=== PATIENT | female | born 1965 | race Hispanic/Latino ===

== ENCOUNTER 2016-10-12 08:38 | Outpatient (CLI) | payer BC ==
--- NOTE | 2016-10-12 11:37 | XRay Report ---
Right hand: Trauma, pain. There is a small avulsion fragment from the base of the middle phalanx in the third digit. There is mild swelling around the second and third digits. The findings otherwise appear generally unremarkable. Impression: Third digit fracture.
== END 2016-10-12 08:39 | disposition home or self-care (01) ==
LOC: SPVIMAG 08:38
PROVIDERS: ATTEND Specialist
DX: S62.602A Fracture of unspecified phalanx of right middle finger, initial encounter for closed fracture (principal); X58.XXXA Exposure to other specified factors, initial encounter; Y93.89 Activity, other specified; Y92.89 Other specified places as the place of occurrence of the external cause; Y99.8 Other external cause status

== ENCOUNTER 2016-11-25 16:58 | Emergency (ER) | payer BC ==
[2016-11-25 18:01] LABS: Basophils % (Auto) 0.8 % (0.0-1.8); Eosinophils % (Auto) 5.9 % (0.0-4.3); Hemoglobin 12.7 gm/dl (10.1-14.3); Mean Corpuscular HGB Conc 33 % (30-34); Mean Corpuscular Hemoglobin 30 pg (28-32); Mean Corpuscular Volume 89 fl (79-97); Platelet Count 239 K/mm3 (140-440); Red Blood Count 4.25 M/mm3 (3.65-5.03); Red Cell Distribution Width 13.5 % (13.2-15.2); White Blood Count 8.4 K/mm3 (4.5-11.0)
[2016-11-25 18:17] LABS: Alanine Aminotransferase 18 units/L (7-56); Albumin 4.2 g/dL (3.9-5); Albumin/Globulin Ratio 1.4 %; Alkaline Phosphatase 61 units/L (35-129); Anion Gap 19 mmol/L; BUN/Creatinine Ratio 22.85; Blood Urea Nitrogen 16 mg/dL (7-17); Calcium 9.2 mg/dL (8.4-10.2); Carbon Dioxide 22 mmol/L (22-30); Chloride 104.6 mmol/L (98-107); Glucose 115 mg/dL (65-100); Lipase 35 units/L (13-60); Potassium 3.9 mmol/L (3.6-5.0); Sodium 142 mmol/L (137-145); Total Protein 7.1 g/dL (6.3-8.2)
[2016-11-25 18:55] LABS: Bilirubin,Urine NEG (Negative); Blood,Urine NEG (Negative); Ketones,Urine NEG (Negative); Leukocyte Esterase,Urine NEG (Negative); Nitrite,Urine NEG (Negative); Protein,Urine <15 mg/dL mg/dL (Negative); RBC,Urine < 1.0 /HPF (0.0-6.0); Urobilinogen,Urine < 2.0 mg/dL (<2.0); WBC,Urine < 1.0 /HPF (0.0-6.0)
[2016-11-25] MEDS ORDERED: NACL 0.9% 1000 ML 1,000 ML IV ONE (19:37)
[2016-11-25] MEDS ORDERED: PEPCID IV ONE (19:37)
[2016-11-25] MEDS ORDERED: ZOFRAN IV ONE (19:37)
--- NOTE | 2016-11-25 20:41 | XRay Report ---
FINAL REPORT PROCEDURE: XR ABD SERIES W CXR 1V TECHNIQUE: Chest x-ray two views of the abdomen are obtained HISTORY: vomiting, epigastric pian COMPARISON: No prior studies are available for comparison. FINDINGS: The heart is normal in size. There is no focal infiltrate, pneumothorax or pleural effusion. Probable 6 millimeter calcified granuloma is present in the left upper lobe of the lungs but should be confirmed with CT exam. No free intraperitoneal air is seen. Mild retained fecal material in the colon is seen that may be mild constipation no small bowel dilation is seen no air-fluid levels are seen no suspicious calcifications are seen. IMPRESSION: 6 millimeter nodule in the left upper lobe of the lungs is probably a granuloma but confirmation with CT exam is recommended. There is likely mild diffuse constipation.
--- NOTE | 2016-11-25 21:36 | Emergency Department Report ---
ED N/V/D HPI - General Chief complaint: Abdominal Pain Stated complaint: VOMITING Time Seen by Provider: 11/25/16 19:26 Source: patient Mode of arrival: Ambulatory Limitations: No Limitations - History of Present Illness Initial comments: 50-year-old female with a past medical history of migraines and previous laprascopic lappendectomy presents to the hospital complaining of nausea vomiting all day. Mild epigastric discomfort secondary to vomiting. Described as a soreness that is mild, intermittent with vomiting, and worse with palpation. No reports or hematemesis, fever, melena, hematochezia, or diarrhea. Last bowel movement was this morning - Related Data Previous Rx's Medication Instructions Recorded Last Taken Type Famotidine [Pepcid] 20 mg PO BID #30 tablet 11/25/16 Unknown Rx Ondansetron [Zofran Odt] 4 mg PO Q8HR PRN #20 tab.rapdis 11/25/16 Unknown Rx Allergies Allergy/AdvReac Type Severity Reaction Status Date / Time bee venom (honey bee) AdvReac Anaphylaxis Verified 11/25/16 17:24 Penicillins AdvReac Anaphylaxis Verified 11/25/16 17:24 ED Review of Systems ROS: Stated complaint: VOMITING Other details as noted in HPI Comment: All other systems reviewed and negative Other: Constitutional: No fevers chills Eyes: No eye pain visual changes ENT: No ear pain or throat pain Neck: Denies pain Respiratory: Denies cough wheezing shortness of breath Cardiovascular: Denies chest pain, palpitations, syncope GI: As per HPI : Denies dysuria Musculoskeletal: Denies back pain Skin: Denies rash, lesions, erythema Neurologic: Denies headache, numbness, weakness Psychiatric: Denies suicidal ideation, hallucinations ED Past Medical Hx - Past Medical History Previous Medical History?: Yes Hx Headaches / Migraines: Yes - Social History Smoking Status: Never Smoker Substance Use Type: None - Medications Home Medications: Home Medications Medication Instructions Recorded Confirmed Last Taken Type Famotidine [Pepcid] 20 mg PO BID #30 tablet 11/25/16 Unknown Rx Ondansetron [Zofran Odt] 4 mg PO Q8HR PRN #20 tab.rapdis 11/25/16 Unknown Rx ED Physical Exam - General Limitations: No Limitations - Other Other exam information: General: No limitations, patient is alert in no acute distress Head exam: Atraumatic, normocephalic Eyes exam: Normal appearance, pupils equal reactive to light, extraocular movements intact ENT: Moist mucous membrane, normal oropharynx Neck exam: Normal inspection, full range of motion, no meningismus nontender Respiratory exam: Clear to auscultation bilateral, no wheezes, rales, crackles Cardiovascular: Normal rate and rhythm, normal heart sounds Abdomen: Soft, nondistended, mild epigastric tenderness, with normal bowel sounds, no rebound, or guarding Extremity: Full range of motion normal inspection no deformity Back: Normal Inspection, full range of motion, no tenderness Neurologic: Alert, oriented x3, cranial nerves intact, no motor or sensory deficit Psychiatric: normal affect, normal mood Skin: Warm, dry, intact ED Course Vital Signs 11/25/16 11/25/16 17:24 18:01 Temperature 97.7 F 98.1 F Pulse Rate 81 70 Respiratory 16 16 Rate Blood Pressure 116/87 Blood Pressure 111/68 [Left] O2 Sat by Pulse 99 100 Oximetry - Reevaluation(s) Reevaluation #1: 11/25/16 21:34 Zofran provided with improvement in symptoms. Patient able to tolerate by mouth and reports feeling better. 1 L normal saline still in progress ED Medical Decision Making - Lab Data Result diagrams: 11/25/16 17:47 11/25/16 17:47 Lab Results 11/25/16 11/25/16 11/25/16 Range/Units 17:47 17:47 18:29 WBC 8.4 (4.5-11.0) K/mm3 RBC 4.25 (3.65-5.03) M/mm3 Hgb 12.7 (10.1-14.3) gm/dl Hct 38.0 (30.3-42.9) % MCV 89 (79-97) fl MCH 30 (28-32) pg MCHC 33 (30-34) % RDW 13.5 (13.2-15.2) % Plt Count 239 (140-440) K/mm3 Lymph % (Auto) 29.7 (13.4-35.0) % [place] % (Auto) 7.6 H (0.0-7.3) % Eos % (Auto) 5.9 H (0.0-4.3) % Baso % (Auto) 0.8 (0.0-1.8) % Lymph # 2.5 (1.2-5.4) K/mm3 [place] # 0.6 (0.0-0.8) K/mm3 Eos # 0.5 H (0.0-0.4) K/mm3 Baso # 0.1 (0.0-0.1) K/mm3 Seg Neutrophils % 56.0 (40.0-70.0) % Seg Neutrophils # 4.7 (1.8-7.7) K/mm3 Sodium 142 (137-145) mmol/L Potassium 3.9 (3.6-5.0) mmol/L Chloride 104.6 (98-107) mmol/L Carbon Dioxide 22 (22-30) mmol/L Anion Gap 19 mmol/L BUN 16 (7-17) mg/dL Creatinine 0.7 (0.7-1.2) mg/dL Estimated GFR > 60 ml/min BUN/Creatinine Ratio 22.85 % Glucose 115 H (65-100) mg/dL Calcium 9.2 (8.4-10.2) mg/dL Total Bilirubin 0.20 (0.1-1.2) mg/dL AST 17 (5-40) units/L ALT 18 (7-56) units/L Alkaline Phosphatase 61 (35-129) units/L Total Protein 7.1 (6.3-8.2) g/dL Albumin 4.2 (3.9-5) g/dL Albumin/Globulin Ratio 1.4 % Lipase 35 (13-60) units/L Urine Color Yellow (Yellow) Urine Turbidity Clear (Clear) Urine pH 6.0 (5.0-7.0) Ur Specific Effort 1.015 (1.003-1.030) Urine Protein <15 mg/dl (Negative) mg/dL Urine Glucose (UA) Neg (Negative) mg/dL Urine Ketones Neg (Negative) mg/dL Urine Blood Neg (Negative) Urine Nitrite Neg (Negative) Urine Bilirubin Neg (Negative) Urine Urobilinogen < 2.0 (<2.0) mg/dL Ur Leukocyte Esterase Neg (Negative) Urine WBC (Auto) < 1.0 (0.0-6.0) /HPF Urine RBC (Auto) < 1.0 (0.0-6.0) /HPF U Epithel Cells (Auto) < 1.0 (0-13.0) /HPF - Radiology Data Radiology results: report reviewed (abdominal series x-ray which has: 6 mm nodule left upper lobe probable granuloma follow-up recommended. Mild diffuse constipation) - Medical Decision Making Patient tolerating by mouth after treatment in ED. We'll discharge home with follow-up. Provide a copy of x-ray results for follow-up regarding incidental right lung granuloma. - Differential Diagnosis gastritis, pancreatitis, PUD, obstruction, viral syndrome Critical Care Time: No Critical care attestation.: If time is entered above; I have spent that time in minutes in the direct care of this critically ill patient, excluding procedure time. ED Disposition Clinical Impression: Vomiting, Pulmonary nodule, right Disposition: DC- TO HOME OR SELFCARE Is pt being admited?: No Does the pt Need Aspirin: No Condition: Stable Instructions: Acute Nausea and Vomiting (ED) Additional Instructions: Follow-up with your doctor for reevaluation. Take a copy of the x-rays provided to your doctor for further outpatient evaluation regarding incidental finding of right lung nodule. Prescriptions: Famotidine [Pepcid] 20 mg PO BID #30 tablet Ondansetron [Zofran Odt] 4 mg PO Q8HR PRN #20 tab.rapdis PRN Reason: Nausea And Vomiting Referrals: PRIMARY CARE, [Primary Care Provider] - 2-3 Days Time of Disposition: 21:47
[2016-11-25 22:01] VITALS: BP 120/81
== END 2016-11-25 22:01 | disposition home or self-care (01) ==
LOC: ED 16:58
DX: R91.1 Solitary pulmonary nodule (principal); G43.909 Migraine, unspecified, not intractable, without status migrainosus; Z88.0 Allergy status to penicillin; Z91.030 Bee allergy status
CPT/HCPCS: 36415; 74022; 80053; 81001; 83690; 85025; 96361; 96374; 96375; 99284; J2405; J7030

== ENCOUNTER 2017-05-03 15:05 | Outpatient (CLI) | payer BC ==
--- NOTE | 2017-05-04 08:43 | Mammography Report ---
BILATERAL DIGITAL SCREENING MAMMOGRAM with CAD : 05/03/17 15:05:00 CLINICAL: Routine screening. COMPARISON:03/25/16 FINDINGS: The breasts are heterogeneously dense, which may obscure small masses.Right inner biopsy clip. No mass, architectural distortion or suspicious calcifications. IMPRESSION: No mammographic evidence of malignancy. BI-RADS CATEGORY: 2 -- Benign RECOMMENDATION: Routine mammographic screening in one year. COMMENT: Patient follow-up letters are generated by our [employer] application.
== END 2017-05-03 15:06 | disposition home or self-care (01) ==
LOC: SPVWC 15:05
PROVIDERS: ATTEND Obstetrics & Gynecology
DX: Z12.31 Encounter for screening mammogram for malignant neoplasm of breast (principal)
CPT/HCPCS: 77067; G0202

== ENCOUNTER 2018-03-26 13:21 | Outpatient (CLI) | payer BC ==
--- NOTE | 2018-03-27 07:12 | XRay Report ---
FINAL REPORT EXAM: XR CHEST ROUTINE 2V HISTORY: PERSISTENT COUGH TECHNIQUE: PA and lateral views of the chest were obtained and compared to the study of 11/25/2016. FINDINGS: The heart size and vascularity appear normal. The lungs are clear. Pleural fluid is not seen. The skeletal structures do not show any acute changes. IMPRESSION: No acute cardiopulmonary process.
== END 2018-03-26 13:22 | disposition home or self-care (01) ==
LOC: SPVWC 13:21
PROVIDERS: ATTEND Specialist
DX: R05 Cough (principal)
CPT/HCPCS: 71046

== ENCOUNTER 2019-04-03 12:33 | Day surgery (SDC) | payer BC ==
[2019-04-03] MEDS ORDERED: LIDOCAINE MPF (2%) 20 MG/1 ML VIAL 5 ML ONE (13:00)
[2019-04-03] MEDS ORDERED: SODIUM CHLORIDE 0.9% 1000 ML 1,000 ML ONE (13:01)
[2019-04-03] MEDS ORDERED: SODIUM CHLORIDE 0.9% 1000 ML 1,000 ML IV SCH (14:00)
[2019-04-03] MEDS ORDERED: PROPOFOL 200 MG/20 ML VIAL IV ONE ×2 (14:23)
--- NOTE | 2019-04-03 14:47 | Short Stay Summary ---
Short Stay Documentation Date of service: 04/03/19 Narrative H&P: 53 yo WF with 6 month hx of intermittent BRBPR. BMs 2x/d, no change. GI bleed with dark red blood streaking stool. No abd pain, N/V, weight loss. - History Past Medical History: anemia, hyperlipidemia, other (Migraines, Anxiety) Past Surgical History: appendectomy, tonsillectomy Social history: no smoking, no alcohol abuse - Allergies and Medications Current Medications: Allergies Penicillins Adverse Reaction (Verified 04/03/19 13:24) Anaphylaxis venom-honey bee [bee venom (honey bee)] Adverse Reaction (Verified 04/03/19 13:24) Anaphylaxis Home Medications Medication Instructions Recorded Confirmed Last Taken Type SUMAtriptan SUCCINATE [Imitrex] 100 mg PO DAILY 04/03/19 04/03/19 2 Months Ago History ~02/01/19 Active Medications Sodium Chloride (Nacl 0.9% 1000 Ml) 1,000 mls @ 50 mls/hr IV DIRECT CONNIE - Physical exam General appearance: no acute distress HEENT: PERRLA, EOMI Lungs: Clear to auscultation Heart: Regular rate, Normal S1, Normal S2 Gastrointestinal: normal, normoactive bowel sounds Extremities: No edema - Brief post op/procedure progress note Date of procedure: 04/03/19 Pre-op diagnosis: Rectal bleed Post-op diagnosis: other (External hemorrhoids) Procedure: Colonoscopy Anesthesia: MAC Findings: 1. Normal colon 2. Moderate external hemorrhoids Surgeon: MARIA DUCKWORTH Estimated blood loss: none Pathology: none Condition: stable - Disposition Condition at discharge: Good Disposition: DC-01 TO HOME OR SELFCARE Short Stay Discharge Plan Follow up with: SELVIN PALMER MD [Primary Care Provider] - 7 Days
--- NOTE | 2019-04-03 14:58 | Anesthesia Consultation ---
Anesthesia Consult and Med Hx Date of service: 04/03/19 - Airway Anesthetic Teeth Evaluation: Good ROM Head & Neck: Adequate Mental/Hyoid Distance: Adequate Mallampati Class: Class II Intubation Access Assessment: Good - Pulmonary Exam CTA: Yes - Cardiac Exam Cardiac Exam: RRR - Pre-Operative Health Status ASA Pre-Surgery Classification: ASA2 Proposed Anesthetic Plan: MAC - Central Nervous System Hx Psychiatric Problems: No - Hematic Hx Anemia: Yes - Other Systems Hx Alcohol Use: No Hx Substance Use: No
--- NOTE | 2019-04-03 14:58 | Anesthesia Day of Surgery ---
Anesthesia Day of Surgery - Day of Surgery Patient Examined: Yes Patient H&P Reviewed: Yes Patient is NPO: Yes
--- NOTE | 2019-04-03 14:58 | Post Anesthesia Evaluation ---
- Post Anesthesia Evaluation Patient Participated: Yes Airway Patent: Yes Stable Respiratory Function: Yes Nausea/Vomiting: No Temp > 96.8F: Yes Pain Manageable: Yes Adequeate Hydration: Yes Anesthesia Complications: No Block Receding Appropriately: Not Applicable Patient on Ventilator: No
--- NOTE | 2019-04-03 14:58 | Operative Report ---
PROCEDURE: Colonoscopy. PREOPERATIVE DIAGNOSIS: Rectal bleeding. POSTOPERATIVE DIAGNOSIS: External hemorrhoids. SEDATION: MAC by Anesthesia. HISTORY: The patient is a 53-year-old woman who presents with intermittent rectal bleeding x 6 months. DESCRIPTION OF PROCEDURE: Indications, risks, and benefits were explained and consent was obtained. The patient was placed in left lateral decubitus position and sedated. Video colonoscope was passed through the rectum after digital examination and passed with minimal difficulty to the cecum. Prep was fair to good with some areas of thick liquid stool coating the wall, making visualization suboptimal at times. FINDINGS: 1. Visualized colonic mucosa is normal appearing with no evidence of mass lesions, vascular lesions or inflammation. 2. Retroflex examination revealed moderate external hemorrhoids. 3. The patient tolerated the procedure well without immediate complications. IMPRESSION: 1. External hemorrhoids -- possible source of bleeding. 2. Otherwise, normal colonoscopy. PLAN: 1. High fiber diet. 2. Monitor. JOB# [id number] HRC/NTS
[2019-04-03 15:13] VITALS: BP 111/67
== END 2019-04-03 12:34 | disposition home or self-care (01) ==
LOC: GIO 12:33
PROVIDERS: ATTEND Internal Medicine Gastroenterology
DX: K92.2 Gastrointestinal hemorrhage, unspecified (principal); K64.8 Other hemorrhoids; G43.909 Migraine, unspecified, not intractable, without status migrainosus; E78.00 Pure hypercholesterolemia, unspecified; Z90.49 Acquired absence of other specified parts of digestive tract; Z98.890 Other specified postprocedural states; Z88.0 Allergy status to penicillin; Z79.899 Other long term (current) drug therapy; Z86.2 Personal history of diseases of the blood and blood-forming organs and certain disorders involving the immune mechanism
CPT/HCPCS: 45378; J2704; J7030

== ENCOUNTER 2019-05-28 10:17 | Outpatient (CLI) | payer BC ==
--- NOTE | 2019-05-28 13:12 | Mammography Report ---
DIGITAL SCREENING MAMMOGRAM WITH CAD, 05/28/2019 INDICATION: Routine screening mammography. TECHNIQUE: Digital bilateral 2D mammography was obtained in the craniocaudal and mediolateral obliq ue projections. This examination was interpreted with the benefit of Computer-Aided Detection analysi s. COMPARISON: 05/17/2018 FINDINGS: Breast Density: The breasts are heterogeneously dense, which may obscure small masses. There is no evidence of dominant mass, suspicious calcifications or architectural distortion in eithe r breast. A right inner biopsy clip. IMPRESSION: No mammographic evidence of malignancy. Follow up recommendation: Routine yearly BI-RADS Category 2: Benign. A "normal" or negative report should not discourage follow up or biopsy of a clinically significant f inding. A written summary of these findings will be mailed to the patient. The patient will be entered into a mammography reporting system which will generate a reminder letter for the patient's next appointmen t at the appropriate interval. The [employer] recommends yearly mammograms starting at age 40 and continuing as l rigo as a woman is in good health. Breast MRI is recommended for women with an approximate 20-25% or greater lifetime risk of breast cancer, including women with a strong family history of breast or ova stanton cancer or who have been treated for Hodgkin's disease. Signer Name: Boo Koch MD Signed: 05/28/2019 1:08 PM Workstation Name: [id number]
== END 2019-05-28 10:18 | disposition home or self-care (01) ==
LOC: SPVWC 10:17
PROVIDERS: ATTEND Obstetrics & Gynecology
DX: Z12.31 Encounter for screening mammogram for malignant neoplasm of breast (principal)
CPT/HCPCS: 77067

== ENCOUNTER 2020-06-02 14:57 | Outpatient (CLI) | payer BC ==
--- NOTE | 2020-06-03 08:30 | Mammography Report ---
DIGITAL SCREENING MAMMOGRAM WITH TOMOSYNTHESIS WITH CAD, 06/02/2020 CLINICAL INFORMATION / INDICATION: Routine Screening Mammography. TECHNIQUE: Digital bilateral 2D and 3D mammography with tomosynthesis was obtained in the craniocaud al and mediolateral oblique projections. Computer-Aided Detection (CAD) analysis was used for interp retation of this study. COMPARISON: 05/28/2019, 05/17/2018 FINDINGS: Breast Density: The breasts are heterogeneously dense, which may obscure small masses. No dominant mass, suspicious calcifications, or architectural distortion in either breast. Right breast biopsy clip is noted. Overall, no significant interval change. IMPRESSION: No mammographic evidence of malignancy. Follow up recommendation: Routine yearly BI-RADS Category 2: Benign. A "normal" or negative report should not discourage follow up or biopsy of a clinically significant f inding. A written summary of these findings will be mailed to the patient. The patient will be entered into a mammography reporting system which will generate a reminder letter for the patient's next appointmen t at the appropriate interval. The [employer] recommends yearly mammograms starting at age 40 and continuing as l rigo as a woman is in good health. Breast MRI is recommended for women with an approximate 20-25% or greater lifetime risk of breast cancer, including women with a strong family history of breast or ova stanton cancer or who have been treated for Hodgkin's disease. Signer Name: Milady Hackett MD Signed: 06/03/2020 8:25 AM Workstation Name: [id number]
== END 2020-06-02 14:58 | disposition home or self-care (01) ==
LOC: SPVWC 14:57
PROVIDERS: ATTEND Obstetrics & Gynecology
DX: Z12.31 Encounter for screening mammogram for malignant neoplasm of breast (principal)
CPT/HCPCS: 77063; 77067

== ENCOUNTER 2020-08-06 09:12 | Observation (INO) | payer BC ==
[2020-08-06] MEDS ORDERED: ASPIRIN 325 MG TAB PO ONE ×2 (09:25→09:57)
--- NOTE | 2020-08-06 09:27 | Event Note ---
ED Screening Note Date of service: 08/06/20 Time: 09:26 ED Screening Note: 54-year-old female with a past medical history of migraine headaches presents to the ER today complaint of substernal chest pain which she describes as a squeezing pain. Onset about a week ago. Intermittent in nature. She states that it got worse today. She reports associated shortness of breath. She is unable to describe any modifying factors. She states that she gets hot when the pain flares up but denies any diaphoresis. She denies any nausea, vomiting, abdominal pain or cough. States that she had a stress test several years ago and that was normal. She states that she is concerned because her mom had history of severe coronary artery disease. This initial assessment/diagnostic orders/clinical plan/treatment(s) is/are subject to change based on patients health status, clinical progression and re- assessment by fellow clinical providers in the ED. Further treatment and workup at subsequent clinical providers discretion. Patient/guardian urged not to elope from the ED as their condition may be serious if not clinically assessed and managed. Initial orders include: Chest pain order set.
--- NOTE | 2020-08-06 09:49 | Emergency Department Report ---
ED Chest Pain HPI - General Chief Complaint: Chest Pain Stated Complaint: CHEST PAIN PUI?: No Time Seen by Provider: 08/06/20 09:47 Source: patient, RN notes reviewed Mode of arrival: Ambulatory Limitations: No Limitations - History of Present Illness Initial Comments: The patient was evaluated in the emergency department for symptoms described in the history of present illness. He/she was evaluated in the context of the [facility] COVID-19 pandemic, which necessitated consideration that the patient might be at risk for infection with the virus that causes COVID-19. Institutional protocols and algorithms that pertain to the evaluation of patients at risk for COVID-19 are in a state of rapid change based on information released by regulatory bodies including the CDC and federal and state organizations. These policies and algorithms were followed during the patient's care in the emergency department. Please note that these policies, procedures and recommendations changed on a rapid basis. Primary CARE doctor: Puneet Olivares The patient is a 54-year-old female. She is a past medical history of headaches and migraines. She has a strong family history of heart disease/myocardial infarction, and reports that her mother had a "massive" myocardial infarction, and her young 60s. During the history and physical examination, I am chaperoned by nurse Karen Macedo Patient presents to the ER today with a complaint of central and left-sided chest pain. It is intermittent and squeezing. It been present since last nigh t. It worsens with deep inspiration. No fever. No vomiting. Positive diaphoresis. Positive nausea. The pain does not radiate to the back, arms or neck. Patient endorses intermittent right posterior knee/lower extremity pain and discomfort. No recent aspirin consumption. No recent cardiac risk ratification. Patient is pain-free at this time. MD Complaint: chest pain -: Gradual, hour(s) Pain Location: substernal, left chest Pain Radiation: none Severity scale (0 -10): 0 Quality: aching, heaviness, sharp Consistency: intermittent Improves With: rest Worsens With: inspiration Aspirin use within the Past 7 Days: (0) No - Related Data Home Medications Medication Instructions Recorded Confirmed Last Taken Ubrogepant [Ubrelvy] 50 mg PO PRN PRN 08/06/20 08/06/20 Unknown Previous Rx's Medication Instructions Recorded Last Taken Type Aspirin [Aspirin BABY CHEW TAB] 81 mg PO QDAY #30 tab.chew 03/04/21 Unknown Rx Allergies Allergy/AdvReac Type Severity Reaction Status Date / Time Penicillins AdvReac Anaphylaxis Verified 08/06/20 09:35 venom-honey bee AdvReac Anaphylaxis Verified 08/06/20 09:35 [bee venom (honey bee)] Heart Score - HEART Score History: Moderately suspicious EKG: Non-specific Age: 45-65 Risk factors: 1-2 risk factors Troponin: < normal limit HEART Score: 4 - Critical Actions Critical Actions: 4-6 pts:12-16.6% risk of adverse cardiac event. Should be admitted ED Review of Systems ROS: Stated complaint: CHEST PAIN Other details as noted in HPI Constitutional: other (Denies loss of taste and smell). denies: fever, weakness Eyes: denies: eye discharge ENT: denies: epistaxis Respiratory: other (Pain with deep inspiration) Cardiovascular: chest pain Gastrointestinal: nausea. denies: hematemesis, melena, hematochezia Genitourinary: denies: dysuria Musculoskeletal: denies: back pain Neurological: denies: headache Hematological/Lymphatic: denies: easy bleeding ED Past Medical Hx - Past Medical History Hx Headaches / Migraines: Yes (MIGRAINES-PRN MED) Hx HIV: No - Surgical History Hx Appendectomy: Yes Hx Breast Surgery: Yes (R BREAST BX) Additional Surgical History: TONSILS - Social History Smoking Status: Never Smoker Substance Use Type: Alcohol - Medications Home Medications: Home Medications Medication Instructions Recorded Confirmed Last Taken Type Aspirin [Aspirin BABY CHEW TAB] 81 mg PO QDAY #30 tab.chew 08/06/20 Unknown Rx Ubrogepant [Ubrelvy] 50 mg PO PRN PRN 08/06/20 08/06/20 Unknown History ED Physical Exam - General Limitations: No Limitations General appearance: alert, in no apparent distress - Head Head exam: Present: atraumatic, normocephalic - Eye Eye exam: Present: normal appearance, EOMI. Absent: nystagmus - ENT ENT exam: Present: normal exam, normal orophraynx, mucous membranes moist, normal external ear exam - Neck Neck exam: Present: normal inspection, full ROM. Absent: tenderness, meningismus - Respiratory Respiratory exam: Present: normal lung sounds bilaterally. Absent: respiratory distress, wheezes, rales, rhonchi, stridor, chest wall tenderness - Cardiovascular Cardiovascular Exam: Present: regular rate, normal rhythm, normal heart sounds. Absent: bradycardia, tachycardia, irregular rhythm, systolic murmur, diastolic murmur, rubs, gallop - GI/Abdominal GI/Abdominal exam: Present: soft, normal bowel sounds. Absent: distended, tenderness, guarding, rebound, rigid, pulsatile mass - Extremities Exam Extremities exam: Present: normal inspection, full ROM, other (2+ pulses noted in the bilateral upper and lower extremities. There is no palpable cord. negative Homans sign. Muscular compartments are soft. The pelvis is stable.). Absent: pedal edema, calf tenderness - Back Exam Back exam: Present: normal inspection, full ROM. Absent: tenderness, CVA tenderness (R), CVA tenderness (L), paraspinal tenderness, vertebral tenderness - Neurological Exam Neurological exam: Present: alert, oriented X3, normal gait, other (No facial droop. Tongue midline. Extraocular movements intact bilaterally. Facial sensation intact to light touch in V1, V2, V3 distribution bilaterally. 5 and a 5 strength in 4 extremities. Sensation intact to light touch in 4 extremities.). Absent: motor sensory deficit - Psychiatric Psychiatric exam: Present: anxious - Skin Skin exam: Present: warm, dry, intact, normal color. Absent: rash ED Course Vital Signs 08/06/20 08/06/20 08/06/20 09:24 09:34 09:58 Temperature 97.2 F L Pulse Rate 82 72 Respiratory 22 18 18 Rate Blood Pressure 135/77 Blood Pressure 130/69 [Right] O2 Sat by Pulse 98 99 98 Oximetry 08/06/20 08/06/20 08/06/20 10:04 10:49 11:37 Temperature Pulse Rate 70 64 62 Respiratory 18 18 18 Rate Blood Pressure Blood Pressure 103/69 101/67 107/57 [Right] O2 Sat by Pulse 99 100 98 Oximetry - Reevaluation(s) Reevaluation #1: 08/06/20 11:22 Differential diagnosis, including but not limited to: Unstable angina, acute coronary syndrome, pulmonary embolism, DVT, GERD, gastritis, hiatal hernia, pneumonia Assessment and plan: 54-year-old female, who is not currently tachycardic, tachypneic or hypoxic, who denies DVT and pulmonary embolism risk factors, low risk by Wells criteria, negative D-dimer, negative bilateral lower extremity ultrasound for DVT, with concerning chest pain. She is chest pain-free at this time. X-ray of the chest is unremarkable. EKG abnormal without prior for comparison. Patient at moderate risk for major ad verse cardiac event as per heart score, admission to the hospital is recommended for accelerated cardiac risk stratification. Discussed this plan of care with the patient, who verbalized understanding. We are awaiting remainder of laboratory studies so we may admit this patient for accelerated cardiac risk ratification. Urinalysis reviewed and appreciated. The patient is asymptomatic at this time. Reevaluation #2: 08/06/20 12:23 Troponin negative. Remainder of laboratory studies unremarkable. Reassessed patient. Have reiterated recommendation for admission for cardiac risk stratification. Patient declines admission at this time. The patient is currently alert and oriented x3, clinically sober, free from distracting injury, and exhibits decision-making capacity. Risks of leaving, including , disability, paralysis, permanent loss of quality of life are discussed with the patient. She is able to articulate these risks in her own words. Conversation witnessed by nurse Sania Macedo Patient understands that she may return to the emergency room right away if and when she changes her mind. Reevaluation #3: 08/06/20 12:30 Change in plans. Patient now amenable to admission/hospitalization. She was going to sign out AGAINST MEDICAL ADVICE because she has 6 dogs at home and she did not have anyone who could care for these animals. However, she got in touch with her neighbor, who was able to take care of the animals, and she is now amenable to admission/hospitalization. Hospital physician, Dr. Sheikh, to assume care for this patient. JOSE ANGEL score - Jose Angel Score Age > 65: (0) No Aspirin use within the Past 7 Days: (0) No 3 or more CAD Risk Factors: (0) No 2 or more Angina events in past 24 hrs: (0) No Known CAD with more than 50% Stenosis: (0) No Elevated Cardiac Markers: (0) No ST Deviation Greater than 0.5mm: (0) No JOSE ANGEL Score: 0 ED Medical Decision Making - Lab Data Result diagrams: 08/06/20 09:39 08/06/20 09:39 Vital Signs 08/06/20 08/06/20 08/06/20 09:24 09:34 09:58 Temperature 97.2 F L Pulse Rate 82 72 Respiratory 22 18 18 Rate Blood Pressure 135/77 Blood Pressure 130/69 [Right] O2 Sat by Pulse 98 99 98 Oximetry 08/06/20 08/06/20 10:04 10:49 Temperature Pulse Rate 70 64 Respiratory 18 18 Rate Blood Pressure Blood Pressure 103/69 101/67 [Right] O2 Sat by Pulse 99 100 Oximetry Lab Results 08/06/20 08/06/20 08/06/20 Range/Units 09:39 09:39 09:49 WBC 6.7 (4.5-11.0) K/mm3 RBC 4.28 (3.65-5.03) M/mm3 Hgb 13.1 (10.1-14.3) gm/dl Hct 38.6 (30.3-42.9) % MCV 90 (79-97) fl MCH 31 (28-32) pg MCHC 34 (30-34) % RDW 13.6 (13.2-15.2) % Plt Count 227 (140-440) K/mm3 Lymph % (Auto) 27.2 (13.4-35.0) % [place] % (Auto) 8.2 H (0.0-7.3) % Eos % (Auto) 3.9 (0.0-4.3) % Baso % (Auto) 1.1 (0.0-1.8) % Lymph # (Auto) 1.8 (1.2-5.4) K/mm3 [place] # (Auto) 0.6 (0.0-0.8) K/mm3 Eos # (Auto) 0.3 (0.0-0.4) K/mm3 Baso # (Auto) 0.1 (0.0-0.1) K/mm3 Seg Neutrophils % 59.6 (40.0-70.0) % Seg Neutrophils # 4.0 (1.8-7.7) K/mm3 PT 11.7 L (12.2-14.9) Sec. INR 0.88 (0.87-1.13) D-Dimer 142.30 (0-234) ng/mlDDU HCG, Qual TNR Urine Color (Yellow) Urine Turbidity (Clear) Urine pH (5.0-7.0) Ur Specific [place] (1.003-1.030) Urine Protein (Negative) mg/dL Urine Glucose (UA) (Negative) mg/dL Urine Ketones (Negative) mg/dL Urine Blood (Negative) Urine Nitrite (Negative) Urine Bilirubin (Negative) Urine Urobilinogen (<2.0) mg/dL Ur Leukocyte Esterase (Negative) Urine WBC (Auto) (0.0-6.0) /HPF Urine RBC (Auto) (0.0-6.0) /HPF U Epithel Cells (Auto) (0-13.0) /HPF Urine Bacteria (Auto) (Negative) /HPF Urine Mucus /HPF Urine Yeast (Budding) /HPF 08/06/20 Range/Units 09:51 WBC (4.5-11.0) K/mm3 RBC (3.65-5.03) M/mm3 Hgb (10.1-14.3) gm/dl Hct (30.3-42.9) % MCV (79-97) fl MCH (28-32) pg MCHC (30-34) % RDW (13.2-15.2) % Plt Count (140-440) K/mm3 Lymph % (Auto) (13.4-35.0) % [place] % (Auto) (0.0-7.3) % Eos % (Auto) (0.0-4.3) % Baso % (Auto) (0.0-1.8) % Lymph # (Auto) (1.2-5.4) K/mm3 [place] # (Auto) (0.0-0.8) K/mm3 Eos # (Auto) (0.0-0.4) K/mm3 Baso # (Auto) (0.0-0.1) K/mm3 Seg Neutrophils % (40.0-70.0) % Seg Neutrophils # (1.8-7.7) K/mm3 PT (12.2-14.9) Sec. INR (0.87-1.13) D-Dimer (0-234) ng/mlDDU HCG, Qual Urine Color Yellow (Yellow) Urine Turbidity Clear (Clear) Urine pH 6.0 (5.0-7.0) Ur Specific [place] 1.011 (1.003-1.030) Urine Protein <15 mg/dl (Negative) mg/dL Urine Glucose (UA) Neg (Negative) mg/dL Urine Ketones Tr (Negative) mg/dL Urine Blood Sm (Negative) Urine Nitrite Neg (Negative) Urine Bilirubin Neg (Negative) Urine Urobilinogen 2.0 (<2.0) mg/dL Ur Leukocyte Esterase Mod (Negative) Urine WBC (Auto) 8.0 H (0.0-6.0) /HPF Urine RBC (Auto) 5.0 (0.0-6.0) /HPF U Epithel Cells (Auto) 3.0 (0-13.0) /HPF Urine Bacteria (Auto) 1+ (Negative) /HPF Urine Mucus Few /HPF Urine Yeast (Budding) Few /HPF Vital Signs 08/06/20 08/06/20 08/06/20 09:24 09:34 09:58 Temperature 97.2 F L Pulse Rate 82 72 Respiratory 22 18 18 Rate Blood Pressure 135/77 Blood Pressure 130/69 [Right] O2 Sat by Pulse 98 99 98 Oximetry 08/06/20 08/06/20 08/06/20 10:04 10:49 11:37 Temperature Pulse Rate 70 64 62 Respiratory 18 18 18 Rate Blood Pressure Blood Pressure 103/69 101/67 107/57 [Right] O2 Sat by Pulse 99 100 98 Oximetry - EKG Data -: EKG Interpreted by Ct EKG shows normal: sinus rhythm Rate: normal - EKG Data When compared to previous EKG there are: previous EKG unavailable 08/06/20 11:21 Time of EKG interpretation: 9: 28: A.m. No prior available for comparison. Sinus rhythm, 72 bpm. Normal axis, QTC within normal limits. Poor R wave progression. T wave inversion in aVL. Minimal motion artifact. Abnormal EKG. Not a STEMI. - Radiology Data Radiology results: pending, report reviewed, image reviewed DUPLEX DOPPLER LOWER EXTREMITY VEINS, BILATERAL INDICATION / CLINICAL INFORMATION: rle pain cramping, dyspnea. TECHNIQUE: Duplex doppler imaging was performed through the veins of both lower extremities using venous compression and other maneuvers. COMPARISON: None available. FINDINGS: RIGHT COMMON FEMORAL VEIN: Negative. RIGHT FEMORAL VEIN: Negative. RIGHT POPLITEAL VEIN: Negative. RIGHT CALF VEINS: Negative. LEFT COMMON FEMORAL VEIN: Negative. LEFT FEMORAL VEIN: Negative. LEFT POPLITEAL VEIN: Negative. LEFT CALF VEINS: Negative. ADDITIONAL FINDINGS: None. IMPRESSION: 1. No sonographic evidence for DVT in either lower extremity. Signer Name: Jayesh Chávez MD Signed: 08/06/2020 9:48 AM Workstation Name: [id number] CHEST 1 VIEW 08/06/2020 9:11 AM INDICATION / CLINICAL INFORMATION: Chest Pain. COMPARISON: None available. FINDINGS: SUPPORT DEVICES: None. HEART / MED IASTINUM: No significant abnormality. LUNGS / PLEURA: No significant pulmonary or pleural abnormality. No pneumothorax. ADDITIONAL FINDINGS: No significant additional findings. IMPRESSION: 1. No acute findings. Signer Name: Jayesh Chávez MD Signed: 08/06/2020 9:13 AM Workstation Name: [id number] Critical care attestation.: If time is entered above; I have spent that time in minutes in the direct care of this critically ill patient, excluding procedure time. ED Disposition Clinical Impression: Acute chest pain, Right leg pain, Abnormal EKG Disposition: OP ADMIT IP TO THIS HOSP Is pt being admited?: Yes Does the pt Need Aspirin: No Condition: Good Instructions: Angina, [id number], Chest Pain (ED) Additional Instructions: As we discussed, you have left the hospital/emergency room AGAINST MEDICAL ADVICE. By leaving, you risked , disability, paralysis, permanent loss of quality of life. The ER is open 24 hours a day, 7 days a week. It never clos es. Please return to the emergency room right away if and when you change your mind. If you decide not to return to the emergency room, please follow-up with the listed physician referrals as soon as possible. Prescriptions: Aspirin [Aspirin BABY CHEW TAB] 81 mg PO QDAY #30 tab.chew Referrals: JANAK ASENCIO MD [Staff Physician] - 3-5 Days ZURI DAVIS MD [Staff Physician] - 3-5 Days [facility] [Provider Group] - 3-5 Days [facility] [Provider Group] - 3-5 Days
[2020-08-06] MEDS ORDERED: FAMOTIDINE 20 MG TAB PO ONE (09:57)
[2020-08-06] MEDS ORDERED: NITROGLYCERIN 0.4 MG TAB SUBL SL PRN (09:57)
[2020-08-06] MEDS ORDERED: ASPIRIN 325 MG TAB PO SCH (10:00)
[2020-08-06 10:13] LABS: Basophils # (Auto) 0.1 K/mm3 (0.0-0.1); Basophils % (Auto) 1.1 % (0.0-1.8); Eosinophils # (Auto) 0.3 K/mm3 (0.0-0.4); Eosinophils % (Auto) 3.9 % (0.0-4.3); Hematocrit 38.6 % (30.3-42.9); Hemoglobin 13.1 gm/dl (10.1-14.3); Lymphocytes # (Auto) 1.8 K/mm3 (1.2-5.4); Lymphocytes % (Auto) 27.2 % (13.4-35.0); Mean Corpuscular HGB Conc 34 % (30-34); Mean Corpuscular Volume 90 fl (79-97); Monocytes # (Auto) 0.6 K/mm3 (0.0-0.8); Monocytes % (Auto) 8.2 % (0.0-7.3); Platelet Count 227 K/mm3 (140-440); Red Blood Count 4.28 M/mm3 (3.65-5.03); Red Cell Distribution Width 13.6 % (13.2-15.2)
--- NOTE | 2020-08-06 10:18 | XRay Report ---
CHEST 1 VIEW 08/06/2020 9:11 AM INDICATION / CLINICAL INFORMATION: Chest Pain. COMPARISON: None available. FINDINGS: SUPPORT DEVICES: None. HEART / MEDIASTINUM: No significant abnormality. LUNGS / PLEURA: No significant pulmonary or pleural abnormality. No pneumothorax. ADDITIONAL FINDINGS: No significant additional findings. IMPRESSION: 1. No acute findings. Signer Name: Jayesh Chávez MD Signed: 08/06/2020 10:13 AM Workstation Name: [id number]
[2020-08-06 10:23] LABS: INR 0.88 (0.87-1.13)
--- NOTE | 2020-08-06 10:52 | Vascular Lab Report ---
DUPLEX DOPPLER LOWER EXTREMITY VEINS, BILATERAL INDICATION / CLINICAL INFORMATION: rle pain cramping, dyspnea. TECHNIQUE: Duplex doppler imaging was performed through the veins of both lower extremities using venous neema charis and other maneuvers. COMPARISON: None available. FINDINGS: RIGHT COMMON FEMORAL VEIN: Negative. RIGHT FEMORAL VEIN: Negative. RIGHT POPLITEAL VEIN: Negative. RIGHT CALF VEINS: Negative. LEFT COMMON FEMORAL VEIN: Negative. LEFT FEMORAL VEIN: Negative. LEFT POPLITEAL VEIN: Negative. LEFT CALF VEINS: Negative. ADDITIONAL FINDINGS: None. IMPRESSION: 1. No sonographic evidence for DVT in either lower extremity. Signer Name: Jayesh Chváez MD Signed: 08/06/2020 10:48 AM Workstation Name: [id number]
[2020-08-06 11:02] LABS: Bacteria,Urine 1+ /HPF (Negative); Bilirubin,Urine NEG (Negative); Blood,Urine SM (Negative); Color,Urine Yellow (Yellow); Mucus,Urine FEW /HPF; Protein,Urine <15 mg/dL mg/dL (Negative)
[2020-08-06 11:34] LABS: Alanine Aminotransferase 22 units/L (7-56); Albumin 4.1 g/dL (3.9-5); Blood Urea Nitrogen 12 mg/dL (7-17); Calcium 9.4 mg/dL (8.4-10.2); Hemolysis Index 0
[2020-08-06 11:45] LABS: BUN/Creatinine Ratio 17
--- NOTE | 2020-08-06 12:31 | History and Physical Report ---
History of Present Illness Chief complaint: My chest is hurting History of present illness: 54 YO Female with Migraine SOL presents to ED for evaluation. Pt reports " my chest is hurting". Patient states that she has experienced pain in her chest over the past 1 week with acutely worsening symptoms over the past 10 hours. Patient states that her pain is 7/10, intermittent, worsened with exertion, relieved with rest, associated with diaphoresis, associated with shortness of breath, associated with nausea, nonradiating. Patient acknowledges pain with deep breathing. Patient transported to [facility] via private vehicle for further care and evaluation of the aforementioned symptoms. Patient seen and evaluated in the emergency department. All lab and imaging studies reviewed. Patient found to have symptoms consistent with angina. Patient placed in observation status and admitted to telemetry due to increased risk of worsening symptoms. Cardiology team consulted in ED. Patient knowledges extensive family history of heart disease. Patient mother succumbed to an TN at an early age. Patient denies fever, chills, productive cough, skin rash, recent ill contact, or known exposure to COVID-19. No prior admission for review. All medication listed at time of admission has been reconciled. Past History Past Surgical History: appendectomy, tonsillectomy, Other (Breast biopsy) Social history: , lives with family. denies: smoking, alcohol abuse, prescription drug abuse Family history: CAD, hypertension Medications and Allergies Allergies Allergy/AdvReac Type Severity Reaction Status Date / Time Penicillins Allergy Anaphylaxis Verified 08/06/20 12:41 venom-honey bee Allergy Anaphylaxis Verified 08/06/20 12:41 [bee venom (honey bee)] Home Medications Medication Instructions Recorded Confirmed Last Taken Type Aspirin [Aspirin BABY CHEW TAB] 81 mg PO QDAY #30 tab.chew 08/06/20 Unknown Rx Ubrogepant [Ubrelvy] 50 mg PO PRN PRN 08/06/20 08/06/20 Unknown History Active Meds: Active Medications Aspirin (Aspirin 325 Mg Tab) 325 mg PO ONCE CONNIE Stop: 08/06/20 13:00 Nitroglycerin (Nitroglycerin 0.4 Mg Tab Subl) 0.4 mg SL .Q5MIN PRN PRN Reason: Chest Pain Review of Systems Constitutional: no weight loss, no weight gain, no fever, no chills Ears, nose, mouth and throat: no ear pain, no ear discharge, no tinnitis, no nose pain, no nasal congestion, no nasal discharge, no sinus pressure Breasts: no swelling, no mass Cardiovascular: chest pain, shortness of breath, decreased exercise tolerance Respiratory: no cough, no cough with sputum, no excessive sputum Gastrointestinal: nausea, no abdominal pain, no vomiting, no diarrhea, no constipation Genitourinary Female: no pelvic pain, no flank pain, no dysuria, no urinary frequency, no urgency Rectal: no pain, no incontinence, no bleeding Musculoskeletal: no neck stiffness, no neck pain, no arm numbness/tingling, no low back pain Integumentary: no rash, no pruritis, no redness, no sores, no jaundice, no boils Neurological: no head injury, no transient paralysis, no parathesias, no tingling, no tremors, no ataxia Psychiatric: no anxiety, no sleep disturbances, no change in appetite, no change in libido, no hallucinations Endocrine: no cold intolerance, no excessive thirst, no polydipsia, no nocturia, no flushing Hematologic/Lymphatic: no easy bruising, no lymphadenopathy Allergic/Immunologic: no urticaria, no persistent infections, no anaphylaxis Exam - Constitutional Vitals: Temp Pulse Resp BP Pulse Ox 97.2 F L 62 18 107/57 98 08/06/20 09:24 08/06/20 11:37 08/06/20 11:37 08/06/20 11:37 08/06/20 11:37 General appearance: Present: mild distress - EENT Eyes: Present: PERRL ENT: hearing intact, clear oral mucosa - Neck Neck: Present: supple, normal ROM - Respiratory Respiratory effort: normal Respiratory: bilateral: CTA - Cardiovascular Heart Sounds: Present: S1 & S2. Absent: rub, click - Extremities Extremities: pulses symmetrical, No edema Peripheral Pulses: within normal limits - Abdominal General gastrointestinal: Present: soft, non-tender, non-distended, normal bowel sounds Female genitourinary: Present: normal - Integumentary Integumentary: Present: clear, warm, dry - Musculoskeletal Musculoskeletal: gait normal, strength equal bilaterally - Psychiatric Psychiatric: appropriate mood/affect, intact judgment & insight - Neurologic Neurologic: CNII-XII intact, moves all extremities HEART Score - HEART Score EKG: Non-specific Age: 45-65 Risk factors: 1-2 risk factors Troponin: Troponin T < 0.010 ng/mL (0.00-0.029) 08/06/20 09:39 Troponin: < normal limit - Critical Actions Critical Actions: 4-6 pts:12-16.6% risk of adverse cardiac event. Should be admitted Results - Labs CBC & Chem 7: 08/06/20 09:39 08/06/20 09:39 Labs: Abnormal lab results 08/06/20 08/06/20 08/06/20 Range/Units 09:39 09:39 09:49 [place] % (Auto) 8.2 H (0.0-7.3) % PT 11.7 L (12.2-14.9) Sec. Chloride 107.2 H (98-107) mmol/L Urine WBC (Auto) (0.0-6.0) /HPF 08/06/20 Range/Units 09:51 [place] % (Auto) (0.0-7.3) % PT (12.2-14.9) Sec. Chloride (98-107) mmol/L Urine WBC (Auto) 8.0 H (0.0-6.0) /HPF Assessment and Plan - Patient Problems (1) Angina at rest Current Visit: Yes Status: Acute Plan to address problem: 's chest pain protocol: Serial cardiac enzymes, EKG, telemetry, echocardiogram, stress test, cardiology team consulted in ED, supplemental oxygen, morphine, nitro, aspirin, (2) Migraine headache Current Visit: Yes Status: Acute Qualifiers: Intractability: not intractable Plan to address problem: Supportive care, pain control, (3) Abnormal EKG Current Visit: Yes Status: Acute Plan to address problem: Cardiology team consulted, repeat EKG, remote telemetry monitoring. (4) DVT prophylaxis Current Visit: Yes Status: Acute Plan to address problem: SCD to bilateral lower extremities while in bed, patient is ambulatory.
[2020-08-06] MEDS ORDERED: ASPIRIN 81 MG TAB CHEW PO STA (12:33)
[2020-08-06] MEDS ORDERED: MORPHINE 2 MG/1 ML INJ IV PRN (12:33)
[2020-08-06] MEDS ORDERED: ONDANSETRON 4 MG/2 ML INJ IV PRN (12:33)
[2020-08-06] MEDS ORDERED: ACETAMINOPHEN 325 MG TAB PO PRN ×2 (12:33)
[2020-08-06] MEDS ORDERED: ALBUTEROL 2.5 MG/3 ML NEBU IH PRN (12:33)
[2020-08-06 18:32] LABS: Chol/HDL Ratio 3.78 %
[2020-08-07 05:32] LABS: BUN/Creatinine Ratio 12; Blood Urea Nitrogen 11 mg/dL (7-17); Calcium 9.2 mg/dL (8.4-10.2); Hemolysis Index 3
[2020-08-07] MEDS ORDERED: REGADENOSON 0.4 MG/5 ML INJ IV ONE (08:37)
--- NOTE | 2020-08-07 09:31 | Discharge Summary ---
Providers - Providers Date of Admission: 08/06/20 12:33 Date of discharge: 08/07/20 Attending physician: TORIBIO PALMER 08/06/20 Consult to Cardiac Rehabilitation [CONS] Routine Reason For Exam: Phase I 08/06/20 13:47 Consult to Cardiology [CONS] Routine Consulting Provider: ZURI DAVIS Reason For Exam: angina Primary care physician: [facility] [employer] Hospitalization Reason for admission: cp Condition: Good Hospital course: The patient is a 54-year-old female with a past medical history of headaches and migraines and a strong family history of heart disease/myocardial infarction, and reports that her mother had a "massive" myocardial infarction, and her young 60s presented to the ER yesterday with complaints of central and left-sided chest pain. The patient underwent evaluation with EKG that was unremarkable and cardiac isoenzymes are found to be negative. Given her strong family history, patient was seen by cardiology in consultation. Patient underwent stress test and if found to be negative will likely discharge home. Dedicated discharge time 35 minutes Disposition: DC-01 TO HOME OR SELFCARE Time spent for discharge: 35 - Discharge Diagnoses (1) Abnormal EKG Status: Acute (2) Acute chest pain Status: Acute (3) Angina at rest Status: Acute (4) Migraine headache Status: Acute Qualifiers: Intractability: not intractable Core Measure Documentation - Palliative Care Palliative Care/ Comfort Measures: Not Applicable - Core Measures Any of the following diagnoses?: none Exam - Constitutional Vitals: Temp Pulse Resp BP Pulse Ox 97.5 F L 57 L 18 110/59 97 08/07/20 05:32 08/07/20 05:32 08/07/20 05:32 08/07/20 05:32 08/07/20 05:32 General appearance: Present: no acute distress, well-nourished - EENT Eyes: Present: PERRL ENT: hearing intact, clear oral mucosa - Neck Neck: Present: supple, normal ROM - Respiratory Respiratory effort: normal Respiratory: bilateral: CTA - Cardiovascular Heart Sounds: Present: S1 & S2. Absent: rub, click - Extremities Extremities: pulses symmetrical, No edema Peripheral Pulses: within normal limits - Abdominal General gastrointestinal: Present: soft, non-tender, non-distended, normal bowel sounds Female genitourinary: Present: normal - Integumentary Integumentary: Present: clear, warm, dry - Musculoskeletal Musculoskeletal: gait normal, strength equal bilaterally - Psychiatric Psychiatric: appropriate mood/affect, intact judgment & insight - Neurologic Neurologic: CNII-XII intact, moves all extremities Plan Activity: advance as tolerated Weight Bearing Status: Weight Bear as Tolerated Diet: regular Follow up with: [facility] [Provider Group] - 3-5 Days [facility] [Provider Group] - 3-5 Days ZURI DAVIS MD [Staff Physician] - 3-5 Days JANAK ASENCIO MD [Staff Physician] - 3-5 Days Prescriptions: Aspirin [Aspirin BABY CHEW TAB] 81 mg PO QDAY #30 tab.chew
[2020-08-07 09:38] VITALS: BP 109/57
--- NOTE | 2020-08-07 11:30 | Consultation ---
History of Present Illness Consult date: 08/07/20 Consult reason: chest pain History of present illness: This is a 54-year old F who presents to this hospital with chest pain. Patient has no prior cardiac history but gives a strong family history of heart disease. She describes chest pain as intermittent chest heaviness over 2 days associated with shortness of breath. She denies exercise intolerance, reports she usually walks at least 3 miles 3'x a week without difficulty. A chest x-ray is negative and lower extremity venous doppler showed no evidence of DVT. Troponin measurements were normal and her presenting ECG is normal sinus rhythm. No acute ST or T wave changes. Patient was admitted by the hospitalist and ordered to undergo an exercise thallium stress test today. Cardiology consultation has been requested. Past History Past Medical History: No medical history Past Surgical History: appendectomy, tonsillectomy, Other (Breast biopsy) Social history: , lives with family. denies: smoking, alcohol abuse, prescription drug abuse Family history: CAD, hypertension Medications and Allergies Allergies Allergy/AdvReac Type Severity Reaction Status Date / Time Penicillins Allergy Anaphylaxis Verified 08/06/20 12:41 venom-honey bee Allergy Anaphylaxis Verified 08/06/20 12:41 [bee venom (honey bee)] Home Medications Medication Instructions Recorded Confirmed Last Taken Type Aspirin [Aspirin BABY CHEW TAB] 81 mg PO QDAY #30 tab.chew 08/06/20 Unknown Rx Ubrogepant [Ubrelvy] 50 mg PO PRN PRN 08/06/20 08/06/20 Unknown History Active Meds: Active Medications Acetaminophen (Acetaminophen 325 Mg Tab) 650 mg PO Q4H PRN PRN Reason: Pain MILD(1-3)/Fever >100.5/SOL Albuterol (Albuterol 2.5 Mg/3 Ml Nebu) 2.5 mg IH Q4HRT PRN PRN Reason: Shortness Of Breath Morphine Sulfate (Morphine 2 Mg/1 Ml Inj) 1 mg IV Q6H PRN PRN Reason: Pain, Moderate (4-6) Nitroglycerin (Nitroglycerin 0.4 Mg Tab Subl) 0.4 mg SL .Q5MIN PRN PRN Reason: Chest Pain Ondansetron HCl (Ondansetron 4 Mg/2 Ml Inj) 4 mg IV Q8H PRN PRN Reason: Nausea And Vomiting Sodium Chloride (Sodium Chloride 0.9% 10 Ml Flush Syringe) 10 ml IV PRN PRN PRN Reason: LINE FLUSH Sodium Chloride (Sodium Chloride 0.9% 10 Ml Flush Syringe) 10 ml IV BID CONNIE Last Admin: 08/07/20 10:06 Dose: 10 ml Documented by: Review of Systems Cardiovascular: chest pain, shortness of breath Physical Examination Vital Signs Temp Pulse Resp BP Pulse Ox 97.2 F L 82 22 135/77 98 08/06/20 09:24 08/06/20 09:24 08/06/20 09:24 08/06/20 09:24 08/06/20 09:24 General appearance: no acute distress HEENT: Positive: PERRL Neck: Positive: trachea midline Cardiac: Positive: Reg Rate and Rhythm Lungs: Positive: Normal Breath Sounds Neuro: Positive: Grossly Intact Abdomen: Positive: Soft Extremities: Absent: edema Results 08/06/20 09:39 08/07/20 04:42 Cardiac Enzymes 08/06/20 Range/Units 09:39 AST 25 (5-40) units/L Lipids 08/06/20 Range/Units 12:39 Triglycerides 122 (2-149) mg/dL Cholesterol 212 H (50-199) mg/dL HDL Cholesterol 56 (40-59) mg/dL Cholesterol/HDL Ratio 3.78 % Comprehensive Metabolic Panel 08/06/20 08/07/20 Range/Units 09:39 04:42 Sodium 139 143 (137-145) mmol/L Potassium 4.3 4.7 (3.6-5.0) mmol/L Chloride 107.2 H 107.3 H (98-107) mmol/L Carbon Dioxide 23 27 (22-30) mmol/L BUN 12 11 (7-17) mg/dL Creatinine 0.7 0.9 (0.6-1.2) mg/dL Glucose 93 100 (65-100) mg/dL Calcium 9.4 9.2 (8.4-10.2) mg/dL AST 25 (5-40) units/L ALT 22 (7-56) units/L Alkaline Phosphatase 60 (35-129) units/L Total Protein 7.1 (6.3-8.2) g/dL Albumin 4.1 (3.9-5) g/dL Assessment and Plan Chest pain, atypical negative stress thallium test today normal LVEF 55-60% by echo Hyperlipidemia Total cholesterol of 212 and LDL of 149 Family history of CAD No further cardiac workup indicated. For hyperlipidemia and family history of CAD will recommend a low dose aspirin and statin therapy. Stable cardiac hoffman. Patient will follow up in our office in 1-2 weeks.
== END 2020-08-07 13:00 | disposition home or self-care (01) ==
LOC: ED 09:12 → 4A 12:33
PROVIDERS: ADMIT Internal Medicine; ATTEND Hospitalist
DX: I20.8 Other forms of angina pectoris (principal); R07.89 Other chest pain; G43.909 Migraine, unspecified, not intractable, without status migrainosus; R94.31 Abnormal electrocardiogram [ECG] [EKG]; Z90.49 Acquired absence of other specified parts of digestive tract; Z98.890 Other specified postprocedural states; Z79.82 Long term (current) use of aspirin
CPT/HCPCS: 36415; 71045; 78452; 80048; 80053; 80061; 81001; 82550; 83690; 83735; 84484; 85025; 85379; 85610; 93005; 93017; 93306; 93970; 99285; A9502; G0378